=== PATIENT | male | born 1945 | race Caucasian/White ===

== ENCOUNTER 2017-09-25 13:38 | Emergency (ER) | payer MEDICARE ==
[~2017-09-25] VITALS: Ht 170.2 cm; Wt 81.3 kg
[2017-09-25 13:47] VITALS: BP 147/67; PULSE 55; RESP 16; TEMP 98.4; O2SAT 97
--- NOTE | 2017-09-25 14:05 | PD ---
HPI Chief Complaint: Headache Time Seen by Provider: 13:59 Travel History International Travel<30 days: No Contact w/Intl Traveler<30days: No Traveled to known affect area: No History of Present Illness HPI This patient complains of head injury. 30 minutes ago he lost his balance reaching for a ball and fell backwards. He hit the back of his head. No LOC but he does have posterior headache. Complains of some neck pain since the fall. Severity of symptoms is moderate. Duration 30 minutes. No alleviating factors. No exacerbating factors. He takes a baby aspirin daily but no other blood thinners. PFSH Past Medical History Hx Anticoagulant Therapy: Yes (asa 81mg) Social History Alcohol Use: No Tobacco Use: No Substance Use: No Allergies-Medications Reported Meds & Prescriptions Reported Meds & Active Scripts Active Reported [Unknown Med] 1 Tab PO DAILY [Statin] 1 Tab PO DAILY Aspirin 81 Mg Chew 81 Mg CHEW DAILY Review of Systems General / Constitutional: No: Fever Eyes: No: Visual changes HENT: Positive: Headaches, Neck Pain Cardiovascular: No: Chest Pain or Discomfort Respiratory: No: Shortness of Breath Gastrointestinal: No: Abdominal Pain Genitourinary: No: Dysuria Musculoskeletal: No: Pain Skin: No Rash Neurologic: Positive: Headache, No: Weakness Psychiatric: No: Depression Endocrine: No: Polydipsia Hematologic/Lymphatic: No: Easy Bruising Physical Exam Narrative GENERAL: Well-nourished, well-developed patient in no apparent distress. SKIN: Focused skin assessment reveals no rash and nodules. Skin is Warm and dry. HEAD: Has an abrasion to the occiput . Normocephalic. EYES: Pupils equal and round. No scleral icterus. No injection or drainage. ENT: No nasal bleeding or discharge. Mucous membranes pink and moist. NECK: Trachea midline. No JVD. No bruising or swelling. [place] collar applied CARDIOVASCULAR: Regular rate and rhythm. No murmur appreciated. RESPIRATORY: No accessory muscle use. Clear to auscultation. Breath sounds equal bilaterally. GASTROINTESTINAL: Abdomen soft, non-tender, nondistended. Hepatic and splenic margins not palpable. MUSCULOSKELETAL: No obvious deformities. No clubbing. No cyanosis. No edema. NEUROLOGICAL: Awake and alert. No obvious cranial nerve deficits. Motor grossly within normal limits. Normal speech. PSYCHIATRIC: Appropriate mood and affect; insight and judgment normal. Data Data Last Documented VS Vital Signs Date Time Temp Pulse Resp B/P (MAP) Pulse Ox O2 Delivery O2 Flow Rate FiO2 09/25/17 13:50 16 09/25/17 13:47 98.4 55 147/67 (93) [address] Cerv Spine W/O Contrast (09/25/17 ) Ct Brain W/O Iv Contrast(Rout) (09/25/17 ) MDM Medical Decision Making Medical Screen Exam Complete: Yes Emergency Medical Condition: Yes Medical Record Reviewed: Yes Differential Diagnosis Cranial hemorrhage, concussion, skull fracture Narrative Course I have reviewed the patient's electronic medical record. 1404: Patient is neurologically normal. He has had injury with headache and neck pain I've ordered brain and cervical spine CT 1510: Results of brain and cervical spine CT I reviewed with patient. He is arthritic change the neck but no fracture. No intracranial injury and brain CT. Recommend ice and Tylenol as needed The patient was advised to follow up with their physician and return if they worsen. Diagnosis Primary Impression: Head injury due to trauma Qualified Codes: S09.90XA - Unspecified injury of head, initial encounter Additional Impression: Headache Qualified Codes: G44.319 - Acute post-traumatic headache, not intractable Additional Instructions: The patient was advised to follow up with their physician and return if they worsen. Med/Other Pt SpecificInfo: Other Disposition: 01 DISCHARGE HOME Condition: Stable Bryon Meyer MD Sep 25, 2017 14:05
[2017-09-25] MEDS ORDERED: STATIN PO (14:34)
[2017-09-25] MEDS ORDERED: UNKNOWN MED PO (14:34)
[2017-09-25] MEDS ORDERED: ASPI-516 CHEW (14:34)
--- NOTE | 2017-09-25 14:45 | RADRPT ---
EXAM DATE/TIME: 09/25/2017 14:29 [facility] COMPARISON: No previous studies available for comparison. INDICATIONS : Trauma. Fell backwards and hit head. Cephalgia and neck pain. RADIATION DOSE: 62.97 CTDIvol (mGy) MEDICAL HISTORY : None SURGICAL HISTORY : None. ENCOUNTER: Initial ACUITY: 1 day PAIN SCALE: 6/10 LOCATION: cranial TECHNIQUE: Multiple contiguous axial images were obtained of the head. Using automated exposure control and adj ustment of the mA and/or kV according to patient size, radiation dose was kept as low as reasonably a chievable to obtain optimal diagnostic quality images. DICOM format image data is available electro nically for review and comparison. FINDINGS: CEREBRUM: The ventricles are normal for age. No evidence of midline shift, mass lesion, hemorrhage or acute in farction. No extra-axial fluid collections are seen. POSTERIOR FOSSA: The cerebellum and brainstem are intact. The 4th ventricle is midline. The cerebellopontine angle i s unremarkable. EXTRACRANIAL: The visualized portion of the orbits is intact. Minimal subgaleal hematoma along the left posterior p arietal skull. SKULL: The calvaria is intact. No evidence of skull fracture. CONCLUSION: 1. No acute intracranial disease. 2. Minimal subgaleal hematoma along the left posterior parietal skull. Derian Mendoza MD on September 25, 2017 at 14:41 Board Certified Radiologist. This report was verified electronically.
--- NOTE | 2017-09-25 14:57 | RADRPT ---
EXAM DATE/TIME: 09/25/2017 14:29 [facility] COMPARISON: No previous studies available for comparison. INDICATIONS : Trauma. Fell backwards and hit head. Cephalgia and neck pain. RADIATION DOSE: 26.60 CTDIvol (mGy) MEDICAL HISTORY : None SURGICAL HISTORY : None. ENCOUNTER: Initial ACUITY: 1 day PAIN SCALE: 2/10 LOCATION: neck TECHNIQUE: Volumetric scanning of the cervical spine was performed. Multiplanar reconstructions in the sagittal, coronal and oblique axial planes were performed. Using automated exposure control and adjustment o f the mA and/or kV according to patient size, radiation dose was kept as low as reasonably achievable to obtain optimal diagnostic quality images. DICOM format image data is available electronically f or review and comparison. FINDINGS: No acute fracture or prevertebral soft tissue swelling is noted. Cervical spondylosis is noted at C6- 7 and to lesser extent at C5-6 and C4-5 there the bony relationship and alignment between C1 and C2 i s well maintained. C2-C3: The bony spinal canal is normal in size. No evidence of disc bulge or herniation. The neural forami na are bilaterally patent. C3-C4: The bony spinal canal is normal in size. No evidence of disc bulge or herniation. The neural forami na are bilaterally patent. C4-C5: The bony spinal canal is normal in size. No evidence of disc bulge or herniation. Mild right neural foraminal narrowing is noted. C5-C6: The bony spinal canal is normal in size. No evidence of disc bulge or herniation. The neural forami na are bilaterally patent. C6-C7: Minimal spinal stenosis is noted secondary to diffuse asymmetric disc osteophyte complex to the left and facet joint hypertrophy bilaterally. Mild left neural foraminal narrowing is noted. The right lea ral foramen is patent. C7-T1: The bony spinal canal is normal in size. No evidence of disc bulge or herniation. The neural forami na are bilaterally patent. CONCLUSION: 1. No acute fracture or prevertebral soft tissue swelling. 2. Minimal spinal stenosis and mild left neural foraminal narrowing at C6-7. 3. Mild right neural foraminal narrowing at C4-5. 4. Cervical spondylosis at C6-7 and to lesser extent C5-6 and C4-5. Derian Mendoza MD on September 25, 2017 at 14:49 Board Certified Radiologist. This report was verified electronically.
== END 2017-09-25 15:20 | disposition home or self-care (01) ==
LOC: PHED 13:38
DX: S09.90XA Unspecified injury of head, initial encounter (principal); W18.39XA Other fall on same level, initial encounter; G44.319 Acute post-traumatic headache, not intractable; Z79.82 Long term (current) use of aspirin
CPT/HCPCS: 70450; 72125; 99283